=== PATIENT | female | born 1960 | race Caucasian/White ===

== ENCOUNTER 2017-11-20 09:25 | Inpatient (IN) | payer BC ==
[2017-11-20] VITALS (7 sets, daily range): BP systolic 101–130; BP diastolic 56–70; PULSE 84–108; RESP 12–24; TEMP 97.8–98.8; O2SAT 90–97
[2017-11-20] MEDS ORDERED: ZOFR8TAB4 SL (10:09)
[2017-11-20] MEDS ORDERED: ALPR.5 PO (10:09)
[2017-11-20] MEDS ORDERED: OXYC1CAP PO (10:09)
--- NOTE | 2017-11-20 10:28 | PD ---
HPI Chief Complaint: Respiratory Distress Time Seen by Provider: 09:48 Travel History International Travel<30 days: No Contact w/Intl Traveler<30days: No Traveled to known affect area: No History of Present Illness HPI This is a 57-year-old female who presents to the emergency department with shortness of breath that has been going on for 1 month. Patient has a history for ovarian cancer and is being treated by [facility] in [place]. Her last chemotherapy was at the beginning of October. She says that over the past month she has had increasing shortness of breath, constant, moderate severity, worse with exertion, improved with rest. She also had a fever over 101 2 days ago. She went to [facility] where she was hospitalized and told she likely needed fluid off of her lung drained. She says that she was anxious and did not feel like she was getting good care there so she left AGAINST MEDICAL ADVICE. She denies any productive cough. 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 ) Chemotherapy: Yes Implanted Vascular Access Dvce: Yes Respiratory: Yes Pneumonia: Yes Influenza Vaccination: No ?: Not Tubal Ligation: Yes Past Surgical History Eye Surgery: Yes (lasic) Other Surgery: Yes (debulking) Social History Alcohol Use: No Tobacco Use: Yes (1 ppd) Substance Use: Yes (cbd oil) Allergies-Medications (Allergen,Severity, Reaction): Coded Allergies: adhesive (Verified Allergy, Mild, Rash, 11/20/17) Uncoded Allergies: chemo (Allergy, Severe, Anaphylaxis, 11/20/17) various types of chemo Reported Meds & Prescriptions Reported Meds & Active Scripts Active Reported Xanax (Alprazolam) 0.5 Mg Tab 0.5 Mg PO TID PRN Oxycodone (Oxycodone HCl) 5 Mg Cap 5 Mg PO Q6H PRN Zofran Odt (Ondansetron Odt) 8 Mg Tab 8 Mg SL Q8H PRN Review of Systems Except as stated in HPI: all other systems reviewed are Neg Physical Exam Narrative GENERAL:Well appearing, no acute distress SKIN: Focused skin assessment warm and dry. HEAD: Atraumatic. Normocephalic. EYES: Pupils equal and round. No injection or drainage. ENT: Moist mucous membranes NECK: Trachea midline. CARDIOVASCULAR: Regular rate and rhythm. No murmur appreciated. RESPIRATORY: Tachypneic, absent lung sounds on the right GASTROINTESTINAL: Abdomen soft, non-tender, nondistended. MUSCULOSKELETAL: No obvious deformities. NEUROLOGICAL: Awake and alert. No obvious cranial nerve deficits. Moving all extremities. PSYCHIATRIC: Appropriate mood and affect; insight and judgment normal. Data Data Last Documented VS Vital Signs Date Time Temp Pulse Resp B/P (MAP) Pulse Ox O2 Delivery O2 Flow Rate FiO2 11/20/17 10:09 97 3.00 11/20/17 10:07 Nasal Cannula 11/20/17 09:34 98.8 108 12 Orders Orders Complete Blood Count With Diff (11/20/17 10:01) Comprehensive Metabolic Panel (11/20/17 10:01) Act Partial Throm Time (Ptt) (11/20/17 10:01) Prothrombin Time / Inr (Pt) (11/20/17 10:01) Iv Access Insert/Monitor (11/20/17 10:01) Ecg Monitoring (11/20/17 10:01) Oximetry (11/20/17 10:01) Oxygen Administration (11/20/17 10:01) Ct Pulmonary Angiogram (11/20/17 10:01) Blood Culture (11/20/17 10:01) Lactic Acid (11/20/17 10:01) Heparin Central Flush (Heparin Central F (11/20/17 10:30) Iohexol 350 Inj (Omnipaque 350 Inj) (11/20/17 12:27) Labs Laboratory Tests Test 11/20/17 11:10 White Blood Count 7.8 TH/MM3 Red Blood Count 3.23 MIL/MM3 Hemoglobin 11.2 GM/DL Hematocrit 32.5 % Mean Corpuscular Volume 100.6 FL Mean Corpuscular Hemoglobin 34.7 PG Mean Corpuscular Hemoglobin Concent 34.5 % Red Cell Distribution Width 14.6 % Platelet Count 268 TH/MM3 Mean Platelet Volume 9.1 FL Neutrophils (%) (Auto) 85.7 % Lymphocytes (%) (Auto) 7.8 % Monocytes (%) (Auto) 5.7 % Eosinophils (%) (Auto) 0.2 % Basophils (%) (Auto) 0.6 % Neutrophils # (Auto) 6.7 TH/MM3 Lymphocytes # (Auto) 0.6 TH/MM3 Monocytes # (Auto) 0.4 TH/MM3 Eosinophils # (Auto) 0.0 TH/MM3 Basophils # (Auto) 0.0 TH/MM3 CBC Comment DIFF FINAL Differential Comment Prothrombin Time 11.9 SEC Prothromb Time International Ratio 1.2 RATIO Activated Partial Thromboplast Time 35.2 SEC Blood Urea Nitrogen 4 MG/DL Creatinine 0.50 MG/DL Random Glucose 92 MG/DL Total Protein 7.0 GM/DL Albumin 2.6 GM/DL Calcium Level 8.7 MG/DL Alkaline Phosphatase 73 U/L Aspartate Amino Transf (AST/SGOT) 27 U/L Alanine Aminotransferase (ALT/SGPT) 13 U/L Total Bilirubin 0.7 MG/DL Sodium Level 134 MEQ/L Potassium Level 3.5 MEQ/L Chloride Level 97 MEQ/L Carbon Dioxide Level 27.2 MEQ/L Anion Gap 10 MEQ/L Estimat Glomerular Filtration Rate 128 ML/MIN Lactic Acid Level 0.7 mmol/L MDM Medical Decision Making Medical Screen Exam Complete: Yes Emergency Medical Condition: Yes Interpretation(s) Afebrile, tachycardic, hypoxic No leukocytosis Macrocytosis Electrolytes are reassuring Lactic acid is 0.7 CT: Huge right pleural effusion, dense airspace process in the left suspicious for pneumonia with compressive atelectasis in the right lower lobe Differential Diagnosis Pleural effusion, pulmonary embolism, pneumonia, cancer Narrative Course This is a 57-year-old female who presents to the emergency department with increasing shortness of breath going on for almost a month in the setting of stage IV ovarian cancer. She was hospitalized at an outside facility and told that the lung needed to be drained but she left AGAINST MEDICAL ADVICE because she did not like the care she was receiving. On arrival she was placed on a monitor and an IV was established. She is hypoxic on room air with an oxygen saturation of 90%. Labs are obtained which are reassuring. I obtained a CT which demonstrates a large right-sided pleural effusion and some possible consolidation in the left lung. She is afebrile and has normal white blood cell count so she does not have clinical signs of pneumonia at this time. Antibiotics will be deferred to the inpatient team. Patient requires admission for thoracentesis. Diagnosis Primary Impression: Pleural effusion Additional Impression: Ovarian cancer Qualified Codes: C56.9 - Malignant neoplasm of unspecified ovary Admitting Information Admitting Physician Requests: Admit Yecenia Brito MD Nov 20, 2017 10:28
[2017-11-20 11:24] LABS: AUTOMATED NEUTROPHIL # 6.7 TH/MM3 (1.8-7.7); BASOPHIL % 0.6 % (0.0-2.0); EOSINOPHIL % 0.2 % (0.0-4.0); HEMATOCRIT 32.5 % (35.0-46.0); HEMOGLOBIN 11.2 GM/DL (11.6-15.3); LYMPH % 7.8 % (9.0-44.0); LYMPHOCYTE # 0.6 TH/MM3 (1.0-4.8); MEAN CELL VOLUME 100.6 FL (80.0-100.0); MEAN CORPUSCULAR HEMOGLOBIN 34.7 PG (27.0-34.0); MEAN CORPUSCULAR HGB CONC 34.5 % (32.0-36.0); MEAN PLATELET VOLUME 9.1 FL (7.0-11.0); MONO % 5.7 % (0.0-8.0); MONOCYTE # 0.4 TH/MM3 (0-0.9); NEUT % 85.7 % (16.0-70.0); PLATELET COUNT 268 TH/MM3 (150-450); RED BLOOD COUNT 3.23 MIL/MM3 (4.00-5.30); RED CELL DISTRIBUTION WIDTH 14.6 % (11.6-17.2); WHITE BLOOD COUNT 7.8 TH/MM3 (4.0-11.0)
[2017-11-20 11:32] LABS: INTERNATIONAL NORMALIZED RATIO 1.2 RATIO; PROTHROMBIN TIME - PATIENT 11.9 SEC (9.8-11.6)
[2017-11-20 11:41] LABS: ALBUMIN 2.6 GM/DL (3.4-5.0); AST (GOT) 27 U/L (15-37); BICARBONATE 27.2 MEQ/L (21.0-32.0); BLOOD UREA NITROGEN 4 MG/DL (7-18); CALCIUM 8.7 MG/DL (8.5-10.1); CHLORIDE 97 MEQ/L (98-107); GLOMERULAR FILTRATION RATE 128 ML/MIN (>89); GLUCOSE,RANDOM 92 MG/DL (74-106); SODIUM (NA) 134 MEQ/L (136-145)
[2017-11-20 11:42] LABS: ALT (GPT) 13 U/L (10-53)
[2017-11-20 11:44] LABS: ALKALINE PHOSPHATASE 73 U/L (45-117); TOTAL BILIRUBIN ADULT 0.7 MG/DL (0.2-1.0)
[2017-11-20] MEDS ORDERED: IOHEXOL 350 MG/ML 10 ML VIAL (for RAD DIAG) IVCONTRAST ONE (12:27)
--- NOTE | 2017-11-20 12:33 | RADRPT ---
EXAM DATE/TIME: 11/20/2017 12:07 [facility] COMPARISON: No previous studies available for comparison. INDICATIONS : Shortness of breath, pneumonia. IV CONTRAST: 100 cc Omnipaque 350 (iohexol) IV RADIATION DOSE: 13.13 CTDIvol (mGy) MEDICAL HISTORY : Ovarian ca since 2014, chemo SURGICAL HISTORY : [place] ENCOUNTER: Initial ACUITY: 3 days PAIN SCALE: 0/10 LOCATION: chest TECHNIQUE: Volumetric scanning of the chest was performed using a pulmonary embolism protocol MIP images were re constructed. Using automated exposure control and adjustment of the mA and/or kV according to patien t size, radiation dose was kept as low as reasonably achievable to obtain optimal diagnostic quality images. DICOM format image data is available electronically for review and comparison. Follow-up recommendations for detected pulmonary nodules are based at a minimum on nodule size and pa tient risk factors according to Fleischner Society Guidelines. FINDINGS: There is no evidence for PE for technique. There are enlarged lymph nodes in right axilla the la rgest measures 2.5 cm in size and appear pathological. There are small lymph nodes in the AP window t he largest measures 1.5 cm in size. There is a large right pleural effusion with consolidation and/or compressive collapse right lower lung and there is dense airspace process in the lingula, best a deg ree left lower lobe. CONCLUSION: 1. There is no evidence for PE for technique. 2. Huge right pleural effusion. 3. Dense airspace process left lung suspicious for pneumonia and there is compressive collapse in the right lower lobe. 4. Enlarged pathological lymph nodes right axilla and indeterminate most likely benign lymph nodes in the mediastinum. Armando Bhatt MD on November 20, 2017 at 12:26 Board Certified Radiologist. This report was verified electronically.
[2017-11-20] MEDS ORDERED: ACETAMINOPHEN 325 MG TAB PO PRN ×2 (13:00)
[2017-11-20] MEDS ORDERED: SODIUM CHLORIDE 0.9% FLUSH 10 ML FLUSH IV FLUSH PRN (13:00)
[2017-11-20] MEDS ORDERED: MORPHINE SULFATE 4 MG/ML INJ IV PUSH PRN (13:00)
[2017-11-20] MEDS ORDERED: ONDANSETRON HCL 4 MG/2 ML VIAL IVP PRN (13:00)
[2017-11-20] MEDS ORDERED: ALPRAZolam 0.5 MG TAB PO PRN (13:00)
[2017-11-20] MEDS: ENOXAPARIN SODIUM 30 MG/0.3 ML SYRINGE SQ SCH (13:00)
[2017-11-20] MEDS ORDERED: NALOXONE HCL 0.4 MG/ML AMP IV PUSH PRN (13:00)
--- NOTE | 2017-11-20 13:42 | HHI.HP ---
[facility] Unknown Admission Diagnosis pleural effusion, ovarian cancer Diagnoses: Chief Complaint: Shortness of breath Travel History International Travel<30 Days: No Contact w/Intl Traveler <30 Da: No Traveled to Known Affected Are: No History of Present Illness The patient is a 57-year-old female who was diagnosed with ovarian cancer early last year who is presenting to the hospital with shortness of breath. The patient says that she started chemotherapy last December and is status post debulking. Her last chemotherapy session was November 03 and is next due for chemotherapy on November 24. Over the past couple of weeks she has been noticing increasing fatigue. She says she can only walk a few steps without feeling very tired and winded. Over the past 3-4 days her breathing got a lot worse. She complains of shortness of breath at all times. She has been having vomiting. She says she has been eating well. She says she has chronic right- sided rib cage pain. She denies any mucus production. She said that she went to an outside hospital on Tuesday and left AGAINST MEDICAL ADVICE early Tuesday morning because she did not feel comfortable there. She said she received antibiotics and was going to have a thoracentesis done there. She says she has been having regular bowel movements. She denies any dysuria. Review of Systems Except as stated in HPI: all other systems reviewed are Neg Past Family Social History Past Medical History Stage IV ovarian cancer status post a bulking and currently on chemotherapy Past Surgical History Bunion removal of right foot Lasik Allergies: Coded Allergies: adhesive (Verified Allergy, Mild, Rash, 11/20/17) Uncoded Allergies: chemo (Allergy, Severe, Anaphylaxis, 11/20/17) various types of chemo Active Ordered Medications Current Medications Medications (Trade) Dose Ordered Sig/Sachin Route Start Time Stop Time Status Last Admin (Xanax) 0.5 mg TID PRN PO 11/20/17 13:00 (NS Flush) 2 ml UNSCH PRN IV FLUSH 11/20/17 13:00 (NS Flush) 2 ml BID IV FLUSH 11/20/17 21:00 (Tylenol) 650 mg Q4H PRN PO 11/20/17 13:00 (Zofran Inj) 4 mg Q6H PRN IVP 11/20/17 13:00 (Lovenox Inj) 30 mg Q24H SQ 11/20/17 13:00 (Tylenol) 650 mg Q6H PRN PO 11/20/17 13:00 (Roxicodone) 10 mg Q4H PRN PO 11/20/17 13:00 (Morphine Inj) 4 mg Q3H PRN IV PUSH 11/20/17 13:00 (Roxicodone) 5 mg Q4H PRN PO 11/20/17 13:00 (Narcan Inj) 0.4 mg UNSCH PRN IV PUSH 11/20/17 13:00 ([place]-Colace) 1 tab BID PO 11/20/17 21:00 Family History CVA Skin cancer Breast cancer Phlebitis Social History The patient smokes 1 pack per day. She quit drinking alcohol last year. Physical Exam Vital Signs Vital Signs Date Time Temp Pulse Resp B/P (MAP) Pulse Ox O2 Delivery O2 Flow Rate FiO2 11/20/17 10:09 97 3.00 11/20/17 10:07 97 Nasal Cannula 3.00 11/20/17 09:34 98.8 108 12 130/70 (90) 90 11/20/17 09:29 98.8 108 91 130/70 (90) 90 Physical Exam GENERAL: This is a well-nourished, well-developed patient, in no apparent distress. SKIN: No rashes, ecchymoses or lesions. Cool and dry. HEAD: Atraumatic. Normocephalic. No temporal or scalp tenderness. EYES: Pupils equal round and reactive. Extraocular motions intact. No scleral icterus. No injection or drainage. ENT: Nose without bleeding, purulent drainage or septal hematoma. Throat without erythema, tonsillar hypertrophy or exudate. Uvula midline. Airway patent. NECK: Trachea midline. No JVD or lymphadenopathy. Supple, nontender, no meningeal signs. CARDIOVASCULAR: Tachycardic without murmurs, gallops, or rubs. RESPIRATORY: Decreased breath sounds on the right. No wheezing. GASTROINTESTINAL: Abdomen soft, non-tender, nondistended. No hepato-splenomegaly , or palpable masses. No guarding. MUSCULOSKELETAL: Extremities without clubbing, cyanosis. Trace lower extremity edema. NEUROLOGICAL: Awake and alert. Cranial nerves II through XII intact. Motor and sensory grossly within normal limits. Five out of 5 muscle strength in all muscle groups. Normal speech. PSYCH: Mood and affect appropriate. Laboratory Laboratory Tests Test 11/20/17 11:10 White Blood Count 7.8 Red Blood Count 3.23 Hemoglobin 11.2 Hematocrit 32.5 Mean Corpuscular Volume 100.6 Mean Corpuscular Hemoglobin 34.7 Mean Corpuscular Hemoglobin Concent 34.5 Red Cell Distribution Width 14.6 Platelet Count 268 Mean Platelet Volume 9.1 Neutrophils (%) (Auto) 85.7 Lymphocytes (%) (Auto) 7.8 Monocytes (%) (Auto) 5.7 Eosinophils (%) (Auto) 0.2 Basophils (%) (Auto) 0.6 Neutrophils # (Auto) 6.7 Lymphocytes # (Auto) 0.6 Monocytes # (Auto) 0.4 Eosinophils # (Auto) 0.0 Basophils # (Auto) 0.0 CBC Comment DIFF FINAL Differential Comment Prothrombin Time 11.9 Prothromb Time International Ratio 1.2 Activated Partial Thromboplast Time 35.2 Blood Urea Nitrogen 4 Creatinine 0.50 Random Glucose 92 Total Protein 7.0 Albumin 2.6 Calcium Level 8.7 Alkaline Phosphatase 73 Aspartate Amino Transf (AST/SGOT) 27 Alanine Aminotransferase (ALT/SGPT) 13 Total Bilirubin 0.7 Sodium Level 134 Potassium Level 3.5 Chloride Level 97 Carbon Dioxide Level 27.2 Anion Gap 10 Estimat Glomerular Filtration Rate 128 Lactic Acid Level 0.7 Date/Time Source Procedure Growth Status 11/20/17 11:15 Blood Peripheral Aerobic Blood Culture Pending Received 11/20/17 11:15 Blood Peripheral Anaerobic Blood Culture Pending Received Result Diagram: 11/20/17 1110 11/20/[address] Angiography 11/20/17 1001 Signed Impressions: Service Date/Time: Monday, November 20, 2017 12:07 - CONCLUSION: 1. There is no evidence for PE for technique. 2. Huge right pleural effusion. 3. Dense airspace process left lung suspicious for pneumonia and there is compressive collapse in the right lower lobe. 4. Enlarged pathological lymph nodes right axilla and indeterminate most likely benign lymph nodes in the mediastinum. MD Dre Saha VTE Risk Assessment Caprini VTE Risk Assessment: Mod/High Risk (score >= 2) Caprini Risk Assessment Model Point Value = 1 Point Value = 2 Point Value = 3 Point Value = 5 Age 41-60 Minor surgery BMI > 25 kg/m2 Swollen legs Varicose veins or History of unexplained or recurrent spontaneous Oral contraceptives or hormone replacement Sepsis (< 1 month) Serious lung disease, including pneumonia (< 1 month) Abnormal pulmonary function Acute myocardial infarction Congestive heart failure (< 1 month) History of inflammatory bowel disease Medical patient at bed rest Age 61-74 Arthroscopic surgery Major open surgery (> 45 min) Laparoscopic surgery (> 45 min) Malignancy Confined to bed (> 72 hours) Immobilizing plaster cast Central venous access Age >= 75 History of VTE Family history of VTE Factor V Leiden Prothrombin [id number] Lupus anticoagulant Anticardiolipin antibodies Elevated serum homocysteine Heparin-induced thrombocytopenia Other congenital or acquired thrombophilia Stroke (< 1 month) Elective arthroplasty Hip, pelvis, or leg fracture Acute spinal cord injury (< 1 month) Prophylaxis Regimen Total Risk Factor Score Risk Level Prophylaxis Regimen 0-1 Low Early ambulation 2 Moderate Order ONE of the following: *Sequential Compression Device (SCD) *Heparin 5000 units SQ BID 3-4 Higher Order ONE of the following medications: *Heparin 5000 units SQ TID *Enoxaparin/Lovenox 40 mg SQ daily (WT < 150 kg, CrCl > 30 mL/min) *Enoxaparin/Lovenox 30 mg SQ daily (WT < 150 kg, CrCl > 10-29 mL/min) *Enoxaparin/Lovenox 30 mg SQ BID (WT < 150 kg, CrCl > 30 mL/min) AND/OR *Sequential Compression Device (SCD) 5 or more Highest Order ONE of the following medications: *Heparin 5000 units SQ TID (Preferred with Epidurals) *Enoxaparin/Lovenox 40 mg SQ daily (WT < 150 kg, CrCl > 30 mL/min) *Enoxaparin/Lovenox 30 mg SQ daily (WT < 150 kg, CrCl > 10-29 mL/min) *Enoxaparin/Lovenox 30 mg SQ BID (WT < 150 kg, CrCl > 30 mL/min) AND *Sequential Compression Device (SCD) Assessment and Plan Assessment and Plan Acute respiratory failure The pt has been having shortness of breath for 3-4 days prior to admission. CTA showed: There is no evidence for PE for technique; Huge right pleural effusion; Dense airspace process left lung suspicious for pneumonia and there is compressive collapse in the right lower lobe; Enlarged pathological lymph nodes right axilla and indeterminate most likely benign lymph nodes in the mediastinum. Effusion is likely malignant. - US guided thoracentesis to be performed 11/20. - oxygen and nebs as needed. - incentive spirometry. - encourage ambulation. - Levaquin IV. - follow pleural studies. Stage IV ovarian cancer/ Weakness The pt reports increased weakness. She is on chemotherapy, next due 11/24. - continue chemotherapy as scheduled. - PT evaluation. - pain control with a bowel regimen. PPx: Lovenox Code Status Full Discussed Condition With Pt, Dr. Brito Physician Certification 2 Midnight Certification Type: Admission for Inpatient Services Order for Inpatient Services The services are ordered in accordance with Medicare regulations or non- Medicare payer requirements, as applicable. In the case of services not specified as inpatient-only, they are appropriately provided as inpatient services in accordance with the 2-midnight benchmark. Estimated LOS (days): 2 days is the estimated time the patient will need to remain in the hospital, assuming treatment plan goals are met and no additional complications. Post-Hospital Plan: Home Ricardo Ibarra DO Nov 20, 2017 13:42
[2017-11-20] MEDS ORDERED: RESP: ALBUTEROL 2.5 MG/IPRATROPIUM 0.5 MG NEB (PRN) NEB (13:45)
[2017-11-20] MEDS ORDERED: LIDOCAINE HCL 1% 20 ML VIAL ONE (14:36)
--- NOTE | 2017-11-20 14:40 | RADRPT ---
EXAM DATE/TIME: 11/20/2017 14:13 [facility] COMPARISON: No previous studies available for comparison. INDICATIONS : Right sided thoracentesis MEDICAL HISTORY : Ovarian ca since 2015, chemo SURGICAL HISTORY : [place] ENCOUNTER: Initial ACUITY: 3 days PAIN SCORE: 0/10 LOCATION: Bilateral chest FINDINGS: Left subclavian [id number] is present with tip overlapping the expected region of the SVC. Right b asilar opacity is present may be due to a combination of consolidation and or pleural effusion. There is moderate pulmonary edema bilaterally. Heart and mediastinum are unremarkable for technique. CONCLUSION: Right basilar opacity is present may be due to a combination of consolidation and or pleural effusion and moderate pulmonary edema. Armando Bhatt MD on November 20, 2017 at 14:38 Board Certified Radiologist. This report was verified electronically.
[2017-11-20] MEDS ORDERED: LEVOFLOXACIN 750 MG PREMIX INJ 150 ML IV SCH (15:00)
[2017-11-20 15:45] LABS: TOTAL PROTEIN,PLEURAL FLUID 4.8 GM/DL
[2017-11-20 16:38] LABS: PLEURAL FLUID LYMPHS 15 %; PLEURAL FLUID POLYS (SEGS) 83 %; PLEURAL FLUID RBC 80 /MM3 (0-0); PLEURAL FLUID WBC 1640 /MM3 (0-10)
[2017-11-20] MEDS ORDERED: ONDANSETRON ODT 4 MG TAB SL PRN (19:45)
[2017-11-20] MEDS: SODIUM CHLORIDE 0.9% FLUSH 10 ML FLUSH IV FLUSH SCH (21:00)
[2017-11-20] MEDS: DOCUSATE SODIUM 50 MG/SENNA 8.6 MG TAB PO SCH (21:00)
[2017-11-21 02:04] VITALS: PULSE 86; RESP 18; O2SAT 94
[2017-11-21 04:00] VITALS: PULSE 84; RESP 18; O2SAT 93
[2017-11-21 07:00] VITALS: PULSE 105
[2017-11-21 07:31] VITALS: BP 112/66; PULSE 99; RESP 18; TEMP 99; O2SAT 91
[2017-11-21] MEDS: SODIUM CHLORIDE 0.9% FLUSH 10 ML FLUSH IV FLUSH SCH (07:33)
[2017-11-21] MEDS: DOCUSATE SODIUM 50 MG/SENNA 8.6 MG TAB PO SCH (07:34)
--- NOTE | 2017-11-21 08:04 | RADRPT ---
EXAM DATE/TIME: 11/20/2017 13:33 [facility] COMPARISON: No previous studies available for comparison. INDICATIONS : Right pleural effusion. MEDICAL HISTORY : Ovarian cancer, stage 4. Peritoneal cancer. Breast cancer, mets. SURGICAL HISTORY : Tubal ligation. Chemotherapy. Debulking. ENCOUNTER: Initial ACUITY: 2 weeks PAIN SCORE: 5/10 LOCATION: Right chest FLUID: Total volume of 1500 cc of clear, yellow fluid was removed. Fluid was sent to lab for ordered studies. TECHNIQUE: 1. Ultrasound guidance for thoracentesis. 2. Thoracentesis. The risks, benefits, and alternatives to ultrasound guided thoracentesis were explained to the patien t in lay simple terms, including the risk of bleeding and infection. Written and verbal informed con sent was obtained. Appropriate area for thoracentesis was marked under ultrasound guidance with the patient in the uprig ht position. Overlying skin was prepped and draped in the usual sterile fashion and with local anest hetic, a dermatotomy was made with an 11 blade scalpel. A 6 Hebrew thoracentesis catheter was placed in the pleural space and fluid was removed. Catheter was then removed and a sterile dressing applie d. There were no immediate complications. The patient tolerated the procedure well and the left the ultrasound suite in stable condition. Chest radiograph is to be obtained. CONCLUSION: Uncomplicated ultrasound guided thoracentesis. George Clay MD on November 21, 2017 at 8:02 Board Certified Radiologist. This report was verified electronically.
[2017-11-21 08:39] LABS: AUTOMATED NEUTROPHIL # 6.5 TH/MM3 (1.8-7.7); BASOPHIL # 0.1 TH/MM3 (0-0.2); BASOPHIL % 0.6 % (0.0-2.0); EOSINOPHIL # 0.1 TH/MM3 (0-0.4); EOSINOPHIL % 1.1 % (0.0-4.0); HEMATOCRIT 30.2 % (35.0-46.0); HEMOGLOBIN 10.3 GM/DL (11.6-15.3); LYMPH % 13.8 % (9.0-44.0); LYMPHOCYTE # 1.1 TH/MM3 (1.0-4.8); MEAN CELL VOLUME 100.5 FL (80.0-100.0); MEAN CORPUSCULAR HEMOGLOBIN 34.3 PG (27.0-34.0); MEAN CORPUSCULAR HGB CONC 34.1 % (32.0-36.0); MEAN PLATELET VOLUME 9.7 FL (7.0-11.0); MONO % 3.6 % (0.0-8.0); MONOCYTE # 0.3 TH/MM3 (0-0.9); NEUT % 80.9 % (16.0-70.0); PLATELET COUNT 246 TH/MM3 (150-450); RED BLOOD COUNT 3.01 MIL/MM3 (4.00-5.30); RED CELL DISTRIBUTION WIDTH 14.6 % (11.6-17.2); WHITE BLOOD COUNT 8.1 TH/MM3 (4.0-11.0)
[2017-11-21 10:05] LABS: BLOOD UREA NITROGEN 4 MG/DL (7-18)
[2017-11-21 10:06] LABS: ALBUMIN 2.2 GM/DL (3.4-5.0); ALKALINE PHOSPHATASE 77 U/L (45-117); ALT (GPT) 12 U/L (10-53); AST (GOT) 25 U/L (15-37); BICARBONATE 23.9 MEQ/L (21.0-32.0); CALCIUM 8.9 MG/DL (8.5-10.1); CHLORIDE 98 MEQ/L (98-107); CREATININE 0.42 MG/DL (0.50-1.00); GLOMERULAR FILTRATION RATE 157 ML/MIN (>89); GLUCOSE,RANDOM 104 MG/DL (74-106); SODIUM (NA) 133 MEQ/L (136-145); TOTAL BILIRUBIN ADULT 0.8 MG/DL (0.2-1.0); TOTAL PROTEIN 6.6 GM/DL (6.4-8.2)
[2017-11-21 10:44] VITALS: O2SAT 95
[2017-11-21] MEDS ORDERED: OXYGENDME NAS.CANULA (11:23)
[2017-11-21] MEDS ORDERED: POTA10TA2 PO ×2 (11:27→11:49)
[2017-11-21] MEDS ORDERED: LEVA750T9 PO (11:27)
--- NOTE | 2017-11-21 11:30 | HHI.DCPOC ---
Discharge Care Plan Diagnosis: (1) Pleural effusion (2) Respiratory failure with hypoxia (3) Ovarian cancer Goals to Promote Your Health * To prevent worsening of your condition and complications * To maintain your health at the optimal level Directions to Meet Your Goals Take your medications as prescribed Follow your dietary instruction Follow activity as directed Keep your appointments as scheduled Take your immunizations and boosters as scheduled If your symptoms worsen call your PCP, if no PCP go to Urgent Care Center or Emergency Room Smoking is Dangerous to Your Health. Avoid second hand smoke Call the 24-hour hour crisis hotline for domestic abuse at Joelle Jones MD Nov 21, 2017 11:30
[2017-11-21 11:42] VITALS: BP 106/56; PULSE 100; RESP 18; TEMP 98.9; O2SAT 96
[2017-11-21] MEDS ORDERED: POTASSIUM CHLORIDE 25 MEQ EFFERVESCENT TAB PO ONE (12:00)
[2017-11-21] MEDS: ENOXAPARIN SODIUM 30 MG/0.3 ML SYRINGE SQ SCH (12:29)
--- NOTE | 2017-11-21 14:32 | HHI.DS ---
Discharge Summary Admission Date Nov 20, 2017 at 12:51 Discharge Date: Nov 21, 2017 Admitting Diagnosis pleural effusion, ovarian cancer (1) Respiratory failure with hypoxia ICD Code: J96.91 - Respiratory failure, unspecified with hypoxia Diagnosis: Principal (2) Ovarian cancer ICD Code: C56.9 - Malignant neoplasm of unspecified ovary Diagnosis: Secondary Status: Acute (3) Pleural effusion ICD Code: J90 - Pleural effusion, not elsewhere classified Diagnosis: Principal Status: Acute Procedures Thoracentesis done on 11/20/2017 Brief History - From Admission The patient is a 57-year-old female who was diagnosed with ovarian cancer early last year who is presenting to the hospital with shortness of breath. The patient says that she started chemotherapy last December and is status post debulking. Her last chemotherapy session was November 03 and is next due for chemotherapy on November 24. Over the past couple of weeks she has been noticing increasing fatigue. She says she can only walk a few steps without feeling very tired and winded. Over the past 3-4 days her breathing got a lot worse. She complains of shortness of breath at all times. She has been having vomiting. She says she has been eating well. She says she has chronic right- sided rib cage pain. She denies any mucus production. She said that she went to an outside hospital on Tuesday and left AGAINST MEDICAL ADVICE early Tuesday morning because she did not feel comfortable there. She said she received antibiotics and was going to have a thoracentesis done there. She says she has been having regular bowel movements. She denies any dysuria. CBC/BMP: 11/21/17 0615 11/21/17 0615 Significant Findings Laboratory Tests Test 11/20/17 11:10 11/20/17 13:40 11/21/17 06:15 Red Blood Count 3.23 MIL/MM3 (4.00-5.30) 3.01 MIL/MM3 (4.00-5.30) Hemoglobin 11.2 GM/DL (11.6-15.3) 10.3 GM/DL (11.6-15.3) Hematocrit 32.5 % (35.0-46.0) 30.2 % (35.0-46.0) Mean Corpuscular Volume 100.6 FL (80.0-100.0) 100.5 FL (80.0-100.0) Mean Corpuscular Hemoglobin 34.7 PG (27.0-34.0) 34.3 PG (27.0-34.0) Neutrophils (%) (Auto) 85.7 % (16.0-70.0) 80.9 % (16.0-70.0) Lymphocytes (%) (Auto) 7.8 % (9.0-44.0) Lymphocytes # (Auto) 0.6 TH/MM3 (1.0-4.8) Prothrombin Time 11.9 SEC (9.8-11.6) Activated Partial Thromboplast Time 35.2 SEC (24.3-30.1) Blood Urea Nitrogen 4 MG/DL (7-18) 4 MG/DL (7-18) Albumin 2.6 GM/DL (3.4-5.0) 2.2 GM/DL (3.4-5.0) Sodium Level 134 MEQ/L (136-145) 133 MEQ/L (136-145) Chloride Level 97 MEQ/L (98-107) Pleural Fluid WBC 1640 /MM3 (0-10) Pleural Fluid RBC 80 /MM3 (0-0) Creatinine 0.42 MG/DL (0.50-1.00) Potassium Level 3.0 MEQ/L (3.5-5.1) Imaging Last Impressions CT Angiography 11/20/17 1001 Signed Impressions: Service Date/Time: Monday, November 20, 2017 12:07 - CONCLUSION: 1. There is no evidence for PE for technique. 2. Huge right pleural effusion. 3. Dense airspace process left lung suspicious for pneumonia and there is compressive collapse in the right lower lobe. 4. Enlarged pathological lymph nodes right axilla and indeterminate most likely benign lymph nodes in the mediastinum. Armando Bhatt MD Thoracentesis Ultrasound 11/20/17 0000 Signed Impressions: Service Date/Time: Monday, November 20, 2017 13:33 - CONCLUSION: Uncomplicated ultrasound guided thoracentesis. George Clay MD Chest X-Ray 11/20/17 0000 Signed Impressions: Service Date/Time: Monday, November 20, 2017 14:13 - CONCLUSION: Right basilar opacity is present may be due to a combination of consolidation and or pleural effusion and moderate pulmonary edema. Armando Bhatt MD PE at Discharge GENERAL:in NAD CARDIOVASCULAR: Regular rate and rhythm without murmurs, gallops, or rubs. RESPIRATORY: Breath sounds equal bilaterally. No accessory muscle use. GASTROINTESTINAL: Abdomen soft, non-tender, nondistended. MUSCULOSKELETAL: neg edema. Pt update on day of discharge Follow-up for acute respiratory failure secondary to pleural effusion Patient stated that she has to go home today. She stated that she will not stay another day here and feels too good to be in the hospital. Patient stated that she knows why she has pleural effusion and she is being treated for her cancer which is the cause of her pleural effusion. Patient stated that she had multiple paracentesis done secondary to her fluid in abdomen and she is understanding about her pleural effusion. Patient denies any shortness of breathing and stated that her breathing has improved drastically after the thoracentesis. She is also stated that she is not waiting for any insurance authorization for oxygen and that she will pay out of pocket if needed. Patient remains afebrile. Per patient's nurse patient is walking the hallway without any difficulty. Patient stated that she is also walking in the hallway without any difficulties. Patient is scheduled for chemotherapy on the with her oncologist and [facility]. Discussed case with patient's nurse extensively. Hospital Course Acute respiratory failure The pt has been having shortness of breath for 3-4 days prior to admission. CTA showed: There is no evidence for PE for technique; Huge right pleural effusion; Dense airspace process left lung suspicious for pneumonia and there is compressive collapse in the right lower lobe; Enlarged pathological lymph nodes right axilla and indeterminate most likely benign lymph nodes in the mediastinum. Effusion is likely malignant. - US guided thoracentesis to be performed 11/20 with drastic improvement in her respiratory status. Per patient she is on is back to her baseline despite still needing oxygen. - Walk test done was suggestive patient will need home oxygen. -Patient was also treated empirically for pneumonia with Levaquin. Transition her to oral Levaquin. -Reviewed perfusion studies. Cultures still pending but Gram stain did not show any WBC and no organism noted. Blood cultures negative. -Since patient is clinically doing drastically better and requesting to go home today with home oxygen with gross follow-up with her primary care physician and oncologist. Patient still hold any signs of deterioration or worsening of symptoms she must return to the emergency department or call 911. Patient stated that she understood. Community-acquired pneumonia -Treated empirically for community-acquired pneumonia based on CT scan. But this may be due to pleural effusion. -Clinically doing well. Stage IV ovarian cancer/ Weakness The pt reports increased weakness. She is on chemotherapy, next due 11/24. - continue chemotherapy as scheduled. -Be managed as outpatient in [facility]. -Patient to follow-up as directed. Pt Condition on Discharge: Stable Discharge Disposition: Discharge Home Discharge Time: > 30 minutes Discharge Instructions DIET: Follow Instructions for: As Tolerated, No Restrictions Additional Diet Instructions: 2 L fluid restriction. Activities you can perform: Regular-No Restrictions Follow up Referrals: Oncology - 11/24/17 PCP Follow-up - 2-3 Days New Medications: Levofloxacin (Levaquin) 750 Mg Tablet 750 MG PO DAILY for Infection, #7 TAB 0 Refills Oxygen (O2) (Oxygen (O2)) Device LITER LUIS MIGUEL.CANULA CONTINUOUS for Prevent Hypoxemia, #2 Oxygen Concentrator Portable Gaseous 2 L/min via Nasal Canula Continuous For 99 months Potassium Chloride ER (Potassium Chloride ER) 10 Meq Tab 10 MEQ PO DAILY for Electrolyte Replacement, #30 TAB 0 Refills Continued Medications: Alprazolam (Xanax) 0.5 Mg Tab 0.5 MG PO TID PRN for ANXIETY, TAB 0 Refills Ondansetron Odt (Zofran Odt) 8 Mg Tab 8 MG SL Q8H PRN for NAUSEA OR VOMITING, TAB 0 Refills Oxycodone (Oxycodone) 5 Mg Cap 5 MG PO Q6H PRN for PAIN, CAP 0 Refills Joelle Jones MD Nov 21, 2017 14:32
--- NOTE | 2017-11-21 19:27 | EKG ---
Date Performed: 11/20/2017 Time Performed: 14:37:41 PTAGE: 57 years EKG: Sinus rhythm NORMAL ECG NO PREVIOUS TRACING DOCTOR: Sherly Alonso Interpretating Date/Time 11/21/2017 19:24:08
== END 2017-11-21 15:30 | disposition home or self-care (01) | DRG 754 ==
LOC: NEPC 09:25 → NEDA 12:51 → HCIN 15:26
PROVIDERS: ADMIT Family Medicine; ATTEND Family Medicine
PROC: 0W993ZZ Drainage of Right Pleural Cavity, Percutaneous Approach (ICD-10-PCS; principal; 2017-11-20)
DX: C56.9 Malignant neoplasm of unspecified ovary (principal); J96.01 Acute respiratory failure with hypoxia; J91.0 Malignant pleural effusion; J18.9 Pneumonia, unspecified organism; C79.81 Secondary malignant neoplasm of breast; C78.6 Secondary malignant neoplasm of retroperitoneum and peritoneum; R53.1 Weakness; F41.9 Anxiety disorder, unspecified; F17.210 Nicotine dependence, cigarettes, uncomplicated; Z80.3 Family history of malignant neoplasm of breast; Z80.8 Family history of malignant neoplasm of other organs or systems
CPT/HCPCS: 32555; 71045; 71275; 80053; 82945; 83605; 83615; 83986; 84157; 85025; 85610; 85730; 87040; 87070; 87205; 89051; 93005; 94150; 94618; 96374; C1729; J1642; J1956; Q9967